=== PATIENT | female | born 1990 | race Caucasian/White ===

== ENCOUNTER 2020-07-04 17:36 | Emergency (ER) | payer MEDICAID ==
[~2020-07-04] VITALS: Ht 157.5 cm; Wt 59.0 kg
[2020-07-04 17:39] VITALS: BP 126/85
[2020-07-04] MEDS ORDERED: AZITHROMYCIN 250 MG TABLET ONE (17:58)
[2020-07-04] MEDS ORDERED: LIDOCAINE 0.5% HCL 50 ML VIAL ONE (17:59)
[2020-07-04] MEDS ORDERED: CEFTRIAXONE 500 MG VIAL ONE (17:59)
[2020-07-04] MEDS ORDERED: AZITHROMYCIN 250 MG TABLET PO ONE (18:00)
[2020-07-04] MEDS ORDERED: CEFTRIAXONE 500 MG VIAL IM ONE (18:00)
== END 2020-07-04 18:19 | disposition home or self-care (01) ==
LOC: ER 17:43
DX: A54.9 Gonococcal infection, unspecified (principal); Z59.0 Homelessness
CPT/HCPCS: 96372; 99283; J0696; J3490